=== PATIENT | female | born 1950 | race Caucasian/White ===

== ENCOUNTER → 2018-02-08 | Day surgery (SDC) | payer OTHER ==
[2018-01-26 14:46] LABS: BASOPHILS # (AUTO) 0.1 (0.0-0.1); EOSINOPHILS # (AUTO) 0.3 (0.0-0.4); HEMATOCRIT 39.8 % (34.2-44.1); HEMOGLOBIN 12.3 g/dL (12.0-16.0); LYMPHOCYTES % 31.9 % (18.0-39.1); MEAN CORPUSCULAR HEMOGLOBIN 27.8 pg (28-32); MEAN CORPUSCULAR HGB CONC 30.9 g/dL (31-35); MONOCYTES # (AUTO) 0.5 (0.2-0.8); MONOCYTES % 8.2 % (4.4-11.3); NEUTROPHILS # (AUTO) 3.4 (2.1-6.9); NEUTROPHILS % 54.7 % (38.7-80.0); PLATELET COUNT 250 x10e3/uL (140-360); RED BLOOD COUNT 4.42 x10e6/uL (3.6-5.1); RED CELL DISTRIBUTION WIDTH 14.6 % (11.7-14.4)
[2018-01-26 15:04] LABS: ANION GAP 17.4 mmol/L (8-16); CALCIUM 9.6 mg/dL (8.4-10.2); CREATININE, SERUM 1.68 mg/dL (0.57-1.11)
[2018-01-26 15:09] LABS: POTASSIUM 5.4 mmol/L (3.5-5.1)
--- NOTE | 2018-01-26 18:54 | Diagnostic Imaging Report ---
EXAMINATION: CHEST 2 VIEWS INDICATION: \S\PER PROTOCOL \S\[id number] \S\1500 \S\PRE ADMIT COMPARISON: Chest radiograph 12/27/2015 FINDINGS: PA and lateral views TUBES and LINES: None. LUNGS: Lungs are well inflated. Lungs are clear. There is no evidence of pneumonia or pulmonary edema. PLEURA: No pleural effusion or pneumothorax. HEART AND MEDIASTINUM: Decreased size of the cardiac silhouette when compared to the preoperative exam. There has been interval placement of a left atrial appendage ligation device, transcutaneous aortic valve replacement and mitral annular ring. BONES AND SOFT TISSUES: Intact median sternotomy wires. Soft tissues are unremarkable. UPPER ABDOMEN: No free air under the diaphragm. IMPRESSION: No acute thoracic abnormality. Signed by: Dr. Simona Ba M.D. on 01/26/2018 6:51 PM
[2018-02-07 10:37] LABS: ANION GAP 14.3 mmol/L (8-16); CREATININE, SERUM 1.95 mg/dL (0.57-1.11); POTASSIUM 4.3 mmol/L (3.5-5.1)
[~2018-02-08] MED LIST: ADVAIR 250-501 EACH; ALBUTEROL0.63 MG/3 INH; ALBUTEROL2.5 MG/3 M IH; AMIODARONE HCL200 MG PO; ARICEPT5 MG PO; ASPIR 8181 MG PO; ATENOLOL50 MG PO; ATORVASTATIN CA20 MG PO; AZELASTINE137 MCG/0.; AZO CRANBERRY1 EAC1 PO; BACTROBAN15 GM TOP; CEFDINIR300 MG PO; DEXAMETHASONE SOD PHOS INJ 4 MG/ML VIAL ONE; DIGOXIN125 MCG PO; DORIBAX250 MG IV; ELIQUIS PO; ERYTHROMYCIN3.5 GM OU; FERROUS SULFAT325 MG PO; FLUTICASONE; FLUTICASONE INH; FLUTICASONE PRO16 GM; FUROSEMIDE40 MG PO; IOPAMIDOL 610MG/1ML 300 MG/ML VIAL IV ONE; IRON325 MG PO; LANOXIN125 MCG PO; LASIX40 MG PO; LEVAQUIN500 MG PO; LEVOCETIRIZINE D5 MG PO; LISINOPRIL10 MG PO; MACROBID 100 M100 MG PO; MECLIZINE HCL25 MG PO; METOPROLOL TART25 MG PO; METRONIDAZOLE500 MG PO; MONTELUKAST SOD10 MG PO; MULTIVITAMINS1 EAC8; NAMENDA10 MG PO; NEXIUM20 MG PO; NEXIUM40 MG PO; NITROFURANTOIN100 MG; NITROFURANTOIN100 MG PO; ONDANSETRON HCL INJ 2 MG/ML VIAL ONE; OXYBUTYNIN CHLO10 MG PO; OXYBUTYNIN CHLOR5 MG PO; Oxybutynin Chloride PO; PRADAXA75 MG PO; PROPOFOL IV EMULSION 10 MG/ML 20 ML VIAL ONE; PROVENTIL HFA6.7 GM INH; Psyllium PO; SEVOFLURANE INHAL SOLN 250 ML PEN BTL ONE; SINGULAIR10 MG PO; SPIRONOLACTONE25 MG PO; SULFAMETHOXAZO1 EAC1; SULFAMETHOXAZOLE PO; SYMBICORT 16010.2 GM INH; SYNTHROID50 MCG PO; TOBRAMYCIN 40 MG/ML 2ML VIAL ONE; TOPROL XL25 MG PO; WARFARIN SODIUM2 MG PO; WOMEN'S 50+ DA1 EACH PO; ZOFRAN ODT4 MG PO; [UNRECOGNIZED DRUG - OTHER] INH; pro air INH
[2018-02-08 15:00] VITALS: BP 131/80
--- NOTE | 2018-02-08 19:42 | Operative Report ---
DATE OF PROCEDURE: February 08, 2018 SERVICE: Urology. PREOPERATIVE DIAGNOSES: 1. History of right hydronephrosis. 2. Right double J stent. 3. History of right ureteral stricture. 4. History of urinary tract infections. POSTOPERATIVE DIAGNOSES: 1. History of right hydronephrosis. 2. Right double J stent. 3. History of right ureteral stricture. 4. History of urinary tract infections. 5. Minimal dilation of the left collecting system. OPERATIONS PERFORMED: 1. Cystoscopy and left retrograde pyelograms under fluoroscopic control. This was done as part of the assessment of renal failure and recurrent urinary tract infection that the patient had. 1. Removal of double J stent from the right side. 2. Right retrograde pyelograms under fluoroscopic control. 3. Right ureteroscopy with a flexible ureteroscope. GENERAL [employer] SUPERVISOR YARD: None. ANESTHESIA: General. CLINICAL INDICATION NOTE: This is a 68-year-old patient with a history of recurrent UTI as well as sepsis. She had a narrow area in the ureter on the right side and has a double J stent in place. After medical clearance and clearing UTIs, she was brought for assessment of both sides. DESCRIPTION OF PROCEDURE AND FINDINGS: After a proper level of anesthesia was achieved, the patient was placed in lithotomy position, prepped and draped in sterile fashion. Urethra inspected, was unremarkable. The outlet was normal. No tumors were present in the bladder. Double J stent was protruding from the right ureteral orifice. Open-end catheter was inserted through the left side, and retrograde pyelogram demonstrated some dilation of the upper collecting system. No definitive obstruction was noticed along the ureter. Following this, the double J stent from the right side was removed. Open-end catheter was inserted, and retrograde pyelogram demonstrating a relatively narrow segment in the lower third of the ureter. The upper collecting system was somewhat dilated. The guidewire was kept in place, and a flexible ureteroscopy was done. Flexible ureteroscope was passed all the way up into the upper collecting system. There was a short, relatively narrow area. However, the scope passed easily through the junction between the upper two thirds and lower third of the ureter. No foreign bodies or stones were identified in the system. It was elected not to put back the double J stent, and will follow her with x-ray to see if there is any obstruction. Patient tolerated procedure well and was transferred in satisfactory condition to recovery room. Followup given. Job#: [id number]
== END | disposition home or self-care (01) ==
LOC: OR 09:15
PROVIDERS: ATTEND Urology
DX: N13.1 Hydronephrosis with ureteral stricture, not elsewhere classified (principal); Z87.440 Personal history of urinary (tract) infections; Z09 Encounter for follow-up examination after completed treatment for conditions other than malignant neoplasm; Z96.0 Presence of urogenital implants; Z88.1 Allergy status to other antibiotic agents; Z88.0 Allergy status to penicillin; E03.9 Hypothyroidism, unspecified; K57.30 Diverticulosis of large intestine without perforation or abscess without bleeding; D64.9 Anemia, unspecified; I48.91 Unspecified atrial fibrillation; Z79.01 Long term (current) use of anticoagulants; J44.9 Chronic obstructive pulmonary disease, unspecified; Z01.810 Encounter for preprocedural cardiovascular examination; Z01.812 Encounter for preprocedural laboratory examination; Z01.811 Encounter for preprocedural respiratory examination
CPT/HCPCS: 36415 ×2; 52005; 52310; 71046; 74420; 80048 ×2; 85025; 87086; 87186; 93005; J1100; J2405; J3260; Q9967

== ENCOUNTER → 2018-11-20 | Day surgery (SDC) | payer OTHER ==
[2018-11-19 10:58] LABS: BASOPHILS # (AUTO) 0.1 (0.0-0.1); BASOPHILS % 1.3 % (0.0-1.0); EOSINOPHILS # (AUTO) 0.4 (0.0-0.4); EOSINOPHILS % 6.3 % (0.0-6.0); HEMOGLOBIN 11.7 g/dL (12.0-16.0); LYMPHOCYTES # (AUTO) 1.5 (1.0-3.2); LYMPHOCYTES % 21.7 % (18.0-39.1); MEAN CORPUSCULAR HEMOGLOBIN 28.4 pg (28-32); MEAN CORPUSCULAR HGB CONC 32.5 g/dL (31-35); MEAN CORPUSCULAR VOLUME 87.4 fL (81-99); MONOCYTES # (AUTO) 0.5 (0.2-0.8); MONOCYTES % 7.8 % (4.4-11.3); NEUTROPHILS # (AUTO) 4.3 (2.1-6.9); NEUTROPHILS % 62.8 % (38.7-80.0); PLATELET COUNT 211 x10e3/uL (140-360); RED BLOOD COUNT 4.12 x10e6/uL (3.6-5.1); RED CELL DISTRIBUTION WIDTH 13.3 % (11.7-14.4)
[2018-11-19 12:04] LABS: ALBUMIN 3.2 g/dL (3.5-5.0); ALBUMIN/GLOBULIN RATIO 0.7 (0.8-2.0); ALKALINE PHOSPHATASE 111 IU/L (40-150); BLOOD UREA NITROGEN 22 mg/dL (7-26); BUN/CREATININE RATIO 14 (6-25); CALCIUM 8.2 mg/dL (8.4-10.2); CARBON DIOXIDE 26 mmol/L (22-29); CHLORIDE 103 mmol/L (98-107); CREATININE, SERUM 1.57 mg/dL (0.57-1.11); EST GLOMERULAR FILTRATION RATE 33 ML/MIN (60-); GLUCOSE 94 mg/dL (74-118); SODIUM 141 mmol/L (136-145)
[2018-11-19 12:07] LABS: ALANINE AMINOTRANSFERASE < 6 IU/L (0-55)
[~2018-11-20] VITALS: Ht 162.6 cm; Wt 80.3 kg
[2018-11-20] VITALS (8 sets, daily range): BP systolic 98–154; BP diastolic 60–112
[~2018-11-20] MED LIST changes: +BENZONATATE100 MG PO; +CEPHALEXIN500 MG PO; -DEXAMETHASONE SOD PHOS INJ 4 MG/ML VIAL ONE; +FENTANYL CITRATE/PF 100MCG/2 ML INJ ONE; +HEPARIN SOD (PORCINE) 1000 UNIT/ML 30ML ONE; +HEPARIN SOD/SOD CHLORIDE 2,000 ML ONE; +IOPAMIDOL 370 MG/ML 200 ML INFUS..BTL INJ ONE; -IOPAMIDOL 610MG/1ML 300 MG/ML VIAL IV ONE; +LEVOTHYROXINE25 MCG PO; +LIDOCAINE HCL 2% LOCAL 20 ML VIAL ONE; +LOPERAMIDE2 MG PO; +METHENAMINE HIPP1 GM PO; +MIDAZOLAM HCL 2 MG/2 ML VIAL ONE; +NITROGLYCERIN/D5W 200 MCG/ML 250 ML ONE; -ONDANSETRON HCL INJ 2 MG/ML VIAL ONE; -PROPOFOL IV EMULSION 10 MG/ML 20 ML VIAL ONE; -SEVOFLURANE INHAL SOLN 250 ML PEN BTL ONE; +SODIUM CHLORIDE 0.9% 1000ML 1,000 ML ONE; -TOBRAMYCIN 40 MG/ML 2ML VIAL ONE; +URECHOLINE25 MG PO; +VERAPAMIL HCL 2.5 MG/ML 2 ML VIAL ONE
--- NOTE | 2018-11-20 13:22 | Operative Report ---
DATE OF PROCEDURE: 11/20/2018 SURGEON: Saul Garcia MD INDICATION: Coronary artery disease, abnormal stress test. PROCEDURES PERFORMED: 1. Left heart catheterization, selective coronary angiography. 2. Deployment of right wrist TR band. COMPLICATIONS: None. RECOMMENDATIONS: Medical therapy. DESCRIPTION OF PROCEDURE: Access was obtained in the right radial artery. A 5-Hungarian sheath was placed. Coronary angiography demonstrated mild coronary artery disease, 10% to 20% luminal stenosis, excellent flow in all vessels. No critical stenosis or occlusions were noted. No intervention is necessary. Mitral valve, aortic valve replacements were noted as well as presence of an AtriClip. Right wrist TR band applied. The patient discharged home same day. Saul Garcia MD [facility]/MODL /[id number]
--- NOTE | 2018-11-20 14:15 | NUR ---
1415 Received pt in rm #[id number]. Identiferx2 requested to complete TR band air release for LHC,no fix. -2cc Normal neuro vascular function ,No,oozing or hematoma. 1430 -2ccNormal neuro vascular function. No oozing or hematoma. 1445 -2cc Normal neuro vascular function.No oozing or hematoma Sterile 2x2 Coban and Tegaderm and wrist splint No gross issues pain pallor pressure or dysrhythmia. dc papers signed per Ed Mckeon iv removed and dressing NO s/s infiltration 2x2 with coban aware of importance of f/o care. tess/ed
--- NOTE | 2018-11-20 14:55 | NUR ---
TR BAND REMOVED BY ANGELA Rodriguez RN AND DRESSING PLACED PER UNIT PROTOCOL TO RIGHT WRIST. DRESSING TO RIGHT WRIST APPEARS TO BE CLEAN,DRY, AND INTACT WITHOUT SIGNS OR SYMPTOMS OF ACTIVE BLEEDING AT THIS TIME. IV TO LEFT HAND REMOVED BY ANGELA Rodriguez RN. DRESSING APPLIED TO LEFT HAND BY ANGELA March RN. DRESSING TO LEFT HAND IS CLEAN,DRY, AND INTACT. REVIEWED DISCHARGE INSTRUCTIONS WITH PATIENT AND PATIENT'S FAMILY. REVIEWED MEDICATION RECONCILIATION, ACTIVITY RESTRICTIONS, DRESSING CARE, FOLLOW UP, AND SIGNS AND SYMPTOMS: WHEN TO CALL 911 AND WHEN TO CALL THE DOCTOR. PATIENT AND FAMILY VERBALIZED UNDERSTANDING AND HAD NO FURTHER QUESTIONS AT THIS TIME. PATIENT DISCHARGED UNIT VIA WHEELCHAIR TO PRIVATE VEHICLE WITH FAMILY HIGH LIGHTER. PATIENT DISCHARGED WITH BELONGINGS. PATIENT APPEARED TO BE IN NO SIGNS OR SYMPTOMS OF ACUTE DISTRESS AT TIME OF DISCHARGE.
== END | disposition home or self-care (01) ==
LOC: CATH LAB 06:10
PROVIDERS: ATTEND Internal Medicine Interventional Cardiology
DX: I25.118 Atherosclerotic heart disease of native coronary artery with other forms of angina pectoris (principal); R94.39 Abnormal result of other cardiovascular function study; Z95.2 Presence of prosthetic heart valve; I48.91 Unspecified atrial fibrillation; I50.20 Unspecified systolic (congestive) heart failure; E78.5 Hyperlipidemia, unspecified; N39.0 Urinary tract infection, site not specified; Z88.2 Allergy status to sulfonamides; Z91.013 Allergy to seafood; Z01.812 Encounter for preprocedural laboratory examination; Z79.82 Long term (current) use of aspirin; Z68.30 Body mass index [BMI] 30.0-30.9, adult; Z82.49 Family history of ischemic heart disease and other diseases of the circulatory system
CPT/HCPCS: 36415; 80053; 85025; 93454; C1769; C1887; J1644; J2001; J2250; J7030; Q9967; J3010

== ENCOUNTER → 2018-12-20 | Day surgery (SDC) | payer OTHER ==
[~2018-12-20] MED LIST changes: +BALANCED SALT SOLN (OPTH) 15 ML BTL IO ONE; +BUPIVACAINE HC 0.75% PF 10ML VIAL INJ ONE; +CHONDR SU A NA/HYALUR SOD 1 EACH KIT IO ONE; +CYCLOPENTOLATE HCL 1% OPTH SOLN 2ML BTL ONE; +EPINEPHRINE HCL 1:1000 1ML 1 MG/ML AMP ONE; -FENTANYL CITRATE/PF 100MCG/2 ML INJ ONE; +GATIFLOXACIN(OPTH) 5 ML LIQD ONE; -HEPARIN SOD (PORCINE) 1000 UNIT/ML 30ML ONE; -HEPARIN SOD/SOD CHLORIDE 2,000 ML ONE; -IOPAMIDOL 370 MG/ML 200 ML INFUS..BTL INJ ONE; +LIDOCAINE 2% /EPINEPHRINE 20 ML SDV INJ ONE; -LIDOCAINE HCL 2% LOCAL 20 ML VIAL ONE; +LIDOCAINE HCL 2% LOCAL INJ 5 ML SDV VIAL INJ ONE; +LIDOCAINE HCL-PF 4% 40 MG/1 ML 5ML AMP ONE; -MIDAZOLAM HCL 2 MG/2 ML VIAL ONE; -NITROGLYCERIN/D5W 200 MCG/ML 250 ML ONE; +PHENYLEPHRINE HCL 2 ML DROPS ONE; +PILOCARPINE HCL(OPTH) 15 ML LIQD ONE; +POVIDONE IODINE 5% (OPTH) 30 ML BTL ONE; +PROPOFOL IV EMULSION 10 MG/ML 20 ML VIAL ONE; -SODIUM CHLORIDE 0.9% 1000ML 1,000 ML ONE; +TOBRAMYCIN/DEXAMETHASONE(OPTH) 3.5 GM TUBE ONE; -VERAPAMIL HCL 2.5 MG/ML 2 ML VIAL ONE
--- OUTSIDE RECORDS SUMMARY | 2018-12-20 06:24 | XMS REPORT | Continuity of Care Document ---
Author Author [facility] Address Unknown Phone Unavailable Care Team Providers Care Fibre Technologist Name Role Phone Propable Information [employer] Unavailable Unavailable Problems Problem Status Onset Date Classification Date Reported Comments Source Sepsis due to Escherichia coli Active Diagnosis 05/03/[id number] Neurogenic bladder Active Problem 05/03/2016.0.1.619569.4.391.11.23159 Urinary tract infection, site not specified Active Diagnosis 05/03/2016 06.30.830.1.527977.4.391.11.29325 Other encephalopathy Active Problem 05/03/2016.0.1.162562.4.391.11.54562 Unspecified infectious disease Active Diagnosis 05/03/2016 06.30.830.1.588784.4.391.11.55155 Other specified bacterial agents as the cause of diseases classified elsewhere Active Diagnosis 05/03/2016 06.30.830.1.049527.4.391.11.47146 Medications Medication Details Route Status Patient Instructions Ordering Provider Order Date Source Fosfomycin Tromethamine as directed Orally Active 3 GM Orally every 3 days [place] 04/26/2016 06.30.830.1.226328.4.391.11.43092 levothyroxine 75 mcg tablet Unknown NA Active [place] .0.1.236362.4.391.11.98608 Metoprolol Tartrate 1 tablet with food Orally Active 25 MG Orally Twice a day [place] .0.1.466255.4.391.11.99983 Allergies, Adverse Reactions, Alerts Substance Category Reaction Severity Reaction type Status Date Reported Comments Source Codeine Sulfate Adverse Reaction Info Not Available Adverse Reaction Active 04/26/2016.0.1.801647.4.391.11.04774 Immunizations No Data Provided for This Section Results No Data Provided for This Section Pathology Reports No Data Provided for This Section Diagnostic Reports No Data Provided for This Section Consultation Notes No Data Provided for This Section Discharge Summaries No Data Provided for This Section History and Physicals No Data Provided for This Section Vital Signs Vital Sign Value Date Comments Source Weight 173 04/26/2016 2.16.840.1.720224.4.391.11.48902 Height 64 04/26/2016 2.16.840.1.149763.4.391.11.06920 Temperature Oral (F) 98.0 F 04/26/2016 2.16.840.1.255551.4.391.11.67391 Heart Rate 66 04/26/2016 2.16.840.1.215042.4.391.11.09870 Diastolic (mm Hg) 42 04/26/2016 2.16.840.1.352928.4.391.11.18443 Systolic (mm Hg) 99 04/26/2016 2.16.840.1.247705.4.391.11.03191 Encounters Location Location Details Encounter Type Encounter Number Reason For Visit Attending Provider ADM Date DC Date Status Source [facility] F/U FROM HOSP [id number] 04/26/2016 04/26/2016 [id number] Procedures No Data Provided for This Section Assessment and Plan No Data Provided for This Section Plan of Care No Data Provided for This Section Social History Social History Date Source Social History ElementQualifiersDate Reported Smoke Exposure: . Second Hand Smoke Exposure: No Apr 26, 2016 Do you take Aspirin, or a blood thinner . No I do not take aspirin / or a blood thinner Apr 26, 2016 Tobacco Use: . Are you a: former smoker, How much do you smoke? Less than half of a pack per day Apr 26, 2016 Use of recreational / street drugs? . Answer: No Apr 26, 2016 Do you have pets? . Status: No Apr 26, 2016 Marital Status: . Apr 26, 2016 Caffeine intake? . Status: No Apr 26, 2016 Do you exercise? . Answer: No Apr 26, 2016 Do you drink alcohol? . Status: No Apr 26, 2016 04/26/2016 2.16.840.1.746811.4.391.11.56004 Family History No Data Provided for This Section Advance Directives No Data Provided for This Section Functional Status No Data Provided for This Section
--- OUTSIDE RECORDS SUMMARY | 2018-12-20 06:24 | XMS REPORT ---
Author Author Akiko Desir [facility] [employer] Address Unknown Phone Unavailable Care Team Providers Care Windlasser Name Role Phone Akiko Desir Unavailable Allergies, Adverse Reactions, Alerts Substance Reaction Event Type Codeine Sulfate Info Not Available Drug Allergy Encounters Encounter Location Date F/U FROM [facility] Apr 26, 2016 Problems Problem Type Condition ICD-9 Code Onset Dates Condition Status Assessment Sepsis due to Escherichia coli A41.51 Active Problem Neurogenic bladder N31.9 Active Assessment Urinary tract infection, site not specified N39.0 Active Problem Other encephalopathy G93.49 Active Assessment Other encephalopathy G93.49 Active Assessment Unspecified infectious disease B99.9 Active Assessment Other specified bacterial agents as the cause of diseases classified elsewhere B96.89 Active Assessment Neurogenic bladder N31.9 Active Medications Medication Code System Code Instructions Start Date End Date Status Dosage levothyroxine 75 mcg tablet Unknown 0 Active Unknown Fosfomycin Tromethamine [facility] [address]-19 3 GM Orally every 3 days Apr 26, 2016 May 05, 2016 Active as directed [facility]op[facility]art[facility] [address]-48 25 MG Orally Twice a day Active 1 tablet with food Social History Social History Element Qualifiers Date Reported Smoke Exposure: . Second Hand Smoke [...] alcohol? . Status: No Apr 26, 2016 Vital Signs Date/Time: Apr 26, 2016 Weight 173 lbs Height 64 in Temperature 98.0 F Cardiac Monitoring Heart Rate 66 /min Blood Pressure Diastolic 42 mm Hg Blood Pressure Systolic 99 mm Hg Summary Purpose eClinicalWorks Submission
[2018-12-20 09:40] VITALS: BP 136/71
== END | disposition home or self-care (01) ==
LOC: OR 06:12
PROVIDERS: ATTEND Ophthalmology
DX: H25.11 Age-related nuclear cataract, right eye (principal); Z88.1 Allergy status to other antibiotic agents; Z88.0 Allergy status to penicillin; Z88.8 Allergy status to other drugs, medicaments and biological substances; I10 Essential (primary) hypertension; G30.9 Alzheimer's disease, unspecified; F02.80 Dementia in other diseases classified elsewhere, unspecified severity, without behavioral disturbance, psychotic disturbance, mood disturbance, and anxiety; J44.9 Chronic obstructive pulmonary disease, unspecified; I25.10 Atherosclerotic heart disease of native coronary artery without angina pectoris; Z95.2 Presence of prosthetic heart valve; Z01.810 Encounter for preprocedural cardiovascular examination
CPT/HCPCS: 66984; 93005; J0171; J2001 ×2; J2704; V2632